=== PATIENT | female | born 1990 | race Caucasian/White ===

== ENCOUNTER 2016-08-23 10:33 | Emergency (ER) | payer MEDICAID, OTHER ==
[2016-08-23 10:46] VITALS: BP 124/74
[2016-08-23] MEDS ORDERED: Acetaminophen/HYDROcodone 325-5 MG Tab PO ONE (11:04)
--- NOTE | 2016-08-23 11:05 | EDM.PDOC ---
ED HPI LOWER BACK PAIN/INJURY - General Chief Complaint: Back Pain or Injury Stated Complaint: Fall down stairs, back pain Time Seen by Provider: 08/23/16 11:00 Source of Information: Reports: Patient, RN notes reviewed History Limitations: Reports: No limitations - History of Present Illness INITIAL COMMENTS - FREE TEXT/NARRATIVE: 26 year old female presents to the ED with complaints of upper and lower back pain from a fall down 5-6 stairs 3 days ago. She has pain to her midline upper back, right shoulder blade, and lumbar spine. She reports mild neck stiffness. She has no difficulty walking. No numbness, tingling, or weakness in her extremities. She denies LOC with the fall. She reports falling backwards down the stairs. No headache, vision changes. She has been taking Tylenol and Ibuprofen with little relief in pain. No additional injury. - Related Data Allergies/ADRs: Allergies Allergy/AdvReac Type Severity Reaction Status Date / Time No Known Allergies Allergy Verified 08/23/16 10:46 Home Meds: Home Meds Acetaminophen/HYDROcodone [[place] 325-5 MG] 1 tab PO Q6H PRN #10 tablet 08/23/16 [Rx] Orphenadrine [Norflex] 100 mg PO BID PRN #15 tab.er 08/23/16 [Rx] Past Medical History - Past Health History Medical/Surgical History: Denies Medical/Surgical History Social & Family History - Tobacco Use Smoking Status *Q: Current Every Day Smoker Years of Tobacco use: 2 Packs/Tins Daily: 0.3 - Caffeine Use Caffeine Use: Reports: None - Recreational Drug Use Recreational Drug Use: No ED ROS GENERAL - Review of Systems Review Of Systems: See Below HEENT: Reports: No symptoms. Denies: Vertigo, Vision change Respiratory: Reports: No Symptoms. Denies: Shortness of Breath Cardiovascular: Reports: No symptoms. Denies: Chest pain GI/Abdominal: Reports: No symptoms. Denies: Abdominal pain, Nausea, Vomiting Musculoskeletal: Reports: back pain, muscle pain Neurological: Reports: No Symptoms. Denies: Numbness, Tingling, Difficulty Walking, Weakness ED EXAM,LOWER BACK PAIN/INJURY - Physical Exam Exam: See Below Exam Limited By: No limitations General Appearance: alert, WD/WN, no apparent distress Neck: normal inspection, supple, non-tender, full range of motion. No: tender midline Respiratory/Chest: no respiratory distress, lungs clear, normal breath sounds, no accessory muscle use, chest non-tender (no rib tenderness on palpation) Cardiovascular: regular rate, rhythm, no murmur Back Exam: normal inspection, full range of motion, paraspinal tenderness, vertebral tenderness (mid thoracic and upper lumbar spine ), other (tenderness over the thoracic and lumbar spine. no step offs. no echymosis. no bruising.) Extremities: normal inspection, normal range of motion Neurological: alert, normal gait, no motor/sensory deficits Skin Exam: Warm, Dry, Intact Course - Vital Signs Last Recorded V/S: Last Vital Signs Temp 97.5 F 08/23/16 10:43 Pulse 76 08/23/16 10:43 Resp 16 08/23/16 10:43 BP 124/74 08/23/16 10:43 Pulse Ox 97 08/23/16 10:43 - Orders/Labs/Meds Orders: Active Orders 24 hr Category Date Time Status Lumbar Spine 2 or 3V [CR] Stat Exams 08/23/16 11:03 Taken Thoracic Spine 3V [CR] Stat Exams 08/23/16 11:03 Taken Labs: Laboratory Tests 08/23/16 Range/Units 11:25 Urine HCG, Qual Negative (NEGATIVE) Meds: Medications Discontinued Medications Generic Name Dose Route Start Last Admin Trade Name Freq PRN Reason Stop Dose Admin Hydrocodone Bitart/Acetaminophen 1 tab 08/23/16 11:04 08/23/16 11:11 [place] 325-5 Mg PO 08/23/16 11:05 1 tab ONETIME ONE Administration - Re-Assessments/Exams Free Text/Narrative Re-Assessment/Exam: Hcg obtained prior to x-rays and is negative. X-rays of thoracic and lumbar spine are unremarkable. Radiologist interpretation pending. Patient educated on return precautions. Prescriptions provided for Norflex and [place]. Departure - Departure Time of Disposition: 12:18 Disposition: Home, Self-Care 01 Condition: good Clinical Impression: Back pain Qualifiers: Back pain location: back pain in unspecified location Chronicity: acute Back pain laterality: midline Qualified Code(s): M54.9 - Dorsalgia, unspecified Prescriptions: Acetaminophen/HYDROcodone [[place] 325-5 MG] 1 tab PO Q6H PRN #10 tablet PRN Reason: Pain Orphenadrine [Norflex] 100 mg PO BID PRN #15 tab.er PRN Reason: Muscle Spasm Instructions: Back Pain, Adult Referrals: PCP,None [Primary Care Provider] - Forms: ED Department Discharge Additional Instructions: Rest and avoid heavy lifting Walking and gentle stretching will help with pain Ibuprofen 600mg every 8 hours [place] 1 tab every 6 hours as needed for pain not relieved by Ibuprofen No driving for at least 8 hours after taking [place] Orphenadrine (norflex) muscle relaxer every 12 hours as needed for muscle spasm Return to ER with worsening of symptoms, loss of bowel or bladder function, or any additional concerns - My Orders Last 24 Hours: My Active Orders 08/23/16 11:03 Lumbar Spine 2 or 3V [CR] Stat Thoracic Spine 3V [CR] Stat - Assessment/Plan Last 24 Hours: My Active Orders 08/23/16 11:03 Lumbar Spine 2 or 3V [CR] Stat Thoracic Spine 3V [CR] Stat
--- NOTE | 2016-08-23 16:49 | CR ---
Thoracic spine: AP, lateral and swimmer's views were obtained of the cervical thoracic junction. Minimal anterior wedging of T12 is seen. Other vertebral body heights are maintained. Pedicles are intact. No subluxation is seen. Impression: 1. Minimal anterior wedging of T12. Uncertain if this is acute or chronic or developmental. MRI would be needed to differentiate if clinically indicated. 2. Three-view thoracic spine study is otherwise unremarkable. Diagnostic code #3
--- NOTE | 2016-08-23 17:24 | CR ---
Thoracic spine: AP, lateral and cone-down lateral views centered to the lumbosacral junction were obtained. Minimal anterior wedging is noted of T11. This was described as T12 on thoracic spine exam which is incorrect. Other vertebral body heights are maintained. Pedicles as well as transverse and spinous processes are intact. No subluxation or fracture is seen. Impression: 1. Slight anterior wedging of T11 described as T12 on thoracic spine exam. This may be old, acute as well as developmental. MRI as described on thoracic spine would be needed to differentiate if clinically indicated. 2. Other portions of the three-view thoracic spine exam is within normal limits for the patient's age. Diagnostic code #3
== END 2016-08-23 12:38 | disposition home or self-care (01) ==
LOC: JD.ED 10:33
DX: M54.5 Low back pain (principal); M54.6 Pain in thoracic spine; F17.210 Nicotine dependence, cigarettes, uncomplicated
CPT/HCPCS: 72072; 72100; 81025; 99284; A9270; 99283

== ENCOUNTER 2016-08-27 15:21 | Emergency (ER) | payer MEDICAID, OTHER ==
[2016-08-27 15:34] VITALS: BP 113/53
[2016-08-27] MEDS ORDERED: Acetaminophen/oxyCODONE 325-5 MG Tab PO ONE (15:54)
--- NOTE | 2016-08-27 16:02 | EDM.PDOC ---
ED HPI LOWER BACK PAIN/INJURY - General Chief Complaint: Back Pain or Injury Stated Complaint: Back pain Time Seen by Provider: 08/27/16 15:45 Source of Information: Reports: Patient, RN notes reviewed History Limitations: Reports: No limitations - History of Present Illness INITIAL COMMENTS - FREE TEXT/NARRATIVE: 26 year old female presents to the ED with upper and lower back pain after falling down approximately 5-6 stairs approximately 1 week ago. Her pain is mostly to her upper-low back and right shoulder blade. She was seen in the ED on 08/23/16 for the same complaints and had x-rays at that time. She denies numbness, tingling, difficulty walking, weakness in extremities, loss of bowel or bladder function. She was prescribed norflex and [place]. She is now out of the [place]. She was taking 1 every 6 hours and said it only partially relieved the pain. The Norflex offered no improvement in pain. - Related Data Allergies/ADRs: Allergies Allergy/AdvReac Type Severity Reaction Status Date / Time No Known Allergies Allergy Verified 08/27/16 15:34 Home Meds: Home Meds Acetaminophen/HYDROcodone [[place] 325-5 MG] 1 tab PO Q6H PRN #10 tablet 08/23/16 [Rx] Orphenadrine [Norflex] 100 mg PO BID PRN #15 tab.er 08/23/16 [Rx] Naproxen 500 mg PO BID #30 tablet 08/27/16 [Rx] oxyCODONE HCl/Acetaminophen [Oxycodone-Acetaminophen 5-325] 1 - 2 each PO Q6H PRN #20 tablet 08/27/16 [Rx] Past Medical History - Past Health History Medical/Surgical History: Denies Medical/Surgical History Social & Family History - Tobacco Use Smoking Status *Q: Current Every Day Smoker Years of Tobacco use: 4 Packs/Tins Daily: 0.1 - Caffeine Use Caffeine Use: Reports: Coffee, Soda - Recreational Drug Use Recreational Drug Use: No ED ROS GENERAL - Review of Systems Review Of Systems: See Below Constitutional: Reports: no symptoms. Denies: fever, chills Respiratory: Reports: No Symptoms. Denies: Shortness of Breath Cardiovascular: Reports: No symptoms. Denies: Chest pain GI/Abdominal: Reports: No symptoms. Denies: Abdominal pain, Nausea, Vomiting Musculoskeletal: Reports: back pain Skin: Reports: no symptoms Neurological: Reports: No Symptoms. Denies: Numbness, Tingling, Difficulty Walking, Weakness ED EXAM,LOWER BACK PAIN/INJURY - Physical Exam Exam: See Below Exam Limited By: No limitations General Appearance: alert, WD/WN, no apparent distress Respiratory/Chest: no respiratory distress, lungs clear, normal breath sounds Cardiovascular: regular rate, rhythm Back Exam: normal inspection, full range of motion, paraspinal tenderness (low back ), vertebral tenderness (lower thoracic and upper lumbar spine. ), other ( No step offs or deformities noted over the spine. tenderness over right shoulder blade. No deformity, swelling or crepitus. ). No: muscle spasm Extremities: normal inspection, normal range of motion Neurological: alert, normal mood/affect, normal dorsiflexion, normal plantar flexion, normal gait, no motor/sensory deficits, oriented x 3 Course - Vital Signs Last Recorded V/S: Last Vital Signs Temp 97.6 F 08/27/16 15:30 Pulse 63 08/27/16 15:30 Resp 16 08/27/16 15:30 BP 113/53 L 08/27/16 15:30 Pulse Ox 100 08/27/16 15:30 - Orders/Labs/Meds Orders: Active Orders 24 hr Category Date Time Status Thoracic Spine wo Cont [CT] Stat Exams 08/27/16 15:55 Taken Meds: Medications Discontinued Medications Generic Name Dose Route Start Last Admin Trade Name Freq PRN Reason Stop Dose Admin Oxycodone/Acetaminophen 2 tab 08/27/16 15:54 08/27/16 16:00 Percocet 325-5 Mg PO 08/27/16 15:55 2 tab ONETIME ONE Administration - Re-Assessments/Exams Free Text/Narrative Re-Assessment/Exam: Reviewed radiologist reports of thoracic and lumbar xrays from 08/23/16. Dr. Kay notes possible anterior wedging of T11 or T12. Will obtain CTs of thoracic and lumbar spine today. Hcg was obtained and negative on 08/23/16. 08/27/16 17:27 CTs of lumbar and thoracic spine read by Dr. Kay. No acute findings or fractures. CT reviewed by Dr. Berg and myself who agree with radiologist interpretation. Please see full reports Pain is well controlled after two Percocet. Will prescribe Percocet and Naproxyn. Will refer to PT and have her call to establish care in our clinic. Educated on return precautions. Discharge instructions as documented. Departure - Departure Time of Disposition: 17:21 Disposition: Home, Self-Care 01 Condition: good Clinical Impression: Back pain Qualifiers: Back pain location: thoracic back pain Chronicity: acute Back pain laterality: midline Qualified Code(s): M54.6 - Pain in thoracic spine Prescriptions: Naproxen 500 mg PO BID #30 tablet oxyCODONE HCl/Acetaminophen [Oxycodone-Acetaminophen 5-325] 1 - 2 each PO Q6H PRN #20 tablet PRN Reason: Pain Referrals: PCP,None [Primary Care Provider] - Forms: ED Department Discharge Additional Instructions: Naproxyn 500mg twice a day with food Percocet 1-2 tabs every 6 hours as needed for pain not releived by Naproxyn Return to ER as needed Follow-up in our health clinic next week to establish care with a primary care provider. Call [phone] to schedule an appointment Our physical therapy department will call you to schedule your first appointment - My Orders Last 24 Hours: My Active Orders 08/27/16 15:55 Thoracic Spine wo Cont [CT] Stat - Assessment/Plan Last 24 Hours: My Active Orders 08/27/16 15:55 Thoracic Spine wo Cont [CT] Stat
--- NOTE | 2016-08-27 17:09 | CT ---
CT lumbar spine Technique: Multiple axial sections were obtained through the lumbar spine. Reconstructed sagittal and coronal images were reviewed. Findings: Vertebral body heights and disc spaces are maintained. Vertebral bodies and posterior arches are intact. No fracture is seen. No abnormal subluxation is seen. No disc herniation is seen. No central canal stenosis or neural foraminal stenosis is seen. No abnormal subluxation is seen on the reconstructed sagittal images. Bony density is seen off the tip of the L2 spinous process compatible with old fracture. Impression: 1. Old fracture off the tip of the spinous process of L2. This is incidental. 2. Nothing acute is identified on CT study of the lumbar spine. Diagnostic code #2
--- NOTE | 2016-08-28 10:53 | CT ---
CT thoracic spine Technique: Multiple axial sections were obtained through the thoracic spine. Reconstructed sagittal and coronal images were reviewed. Findings: Vertebral bodies and posterior arches are intact. No fracture is seen. No bony central or bony neural foraminal stenosis is identified. Visualized lungs are clear. No discrete disc herniation is identified. Small sclerotic area noted within the inferior T11 vertebral body is felt to be incidental. Disc space narrowing is noted at T11-12 which is felt to be developmental. Minimal anterior wedging is noted of T11 which is felt to be developmental. Minimal endplate wedging of the superior T12 vertebral body which is also felt to be developmental. Other vertebral body heights are maintained. No abnormal subluxation is seen. Small calcified lymph node compatible with granulomatous exposure is seen within the left hilar region as an incidental note. Impression: 1. Incidental findings at T11 and T12. 2. Small calcified lymph node within left hilar region which is incidental. 3. Nothing acute is identified on CT study of the thoracic spine. Diagnostic code #2
== END 2016-08-27 17:32 | disposition home or self-care (01) ==
LOC: JD.ED 15:21
DX: M54.6 Pain in thoracic spine (principal); F17.210 Nicotine dependence, cigarettes, uncomplicated
CPT/HCPCS: 72128; 72131; 99284; A9270; 99283

== ENCOUNTER 2016-09-07 17:50 | Emergency (ER) | payer MEDICAID ==
[2016-09-07 18:01] VITALS: BP 116/85
[2016-09-07] MEDS ORDERED: Ketorolac 60 MG/2 ML SDV IM ONE (18:40)
--- NOTE | 2016-09-07 19:20 | EDM.PDOC ---
ED HPI GENERAL MEDICAL PROBLEM - General Chief Complaint: Back Pain or Injury Stated Complaint: BACK PAIN Time Seen by Provider: 09/07/16 18:16 Source of Information: Reports: Patient, Old Records (recent ER and clinic visits ) History Limitations: Reports: No Limitations - History of Present Illness INITIAL COMMENTS - FREE TEXT/NARRATIVE: 26-year-old female comes in for evaluation and treatment of low back pain. Patient was seen in ER on 08-23 and 08-27 for this. Original injury occurred on . She states that she fell down some stairs backwards and landed straight on her back. Previous ER visits included x-rays and CT scans. No acute abnormalities were identified. She also followed up with a primary care provider. Referred her to physical therapy and instructed to use hospice care sales consultant. She has not seen the chiropractor. She has gone to one physical therapy visit. Current symptoms include low back pain. She also reports "chills". Denies any fevers, malaise, nausea, vomiting, urinary incontinence, stool incontinence, numbness, tingling or saddle anesthesia. No bruising currently but states that she was bruised earlier. 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 Has not found any relief with the muscle ralxers or any of these other medications but found some relief with the Percocet and [place]. Location: Reports: Back Improves with: Reports: Medication (norcotics) Context: Reports: Trauma (fall) Associated Symptoms: Reports: No Other Symptoms Right Lower Back Pain Score (Numeric/FACES): 8 - Related Data Allergies Allergy/AdvReac Type Severity Reaction Status Date / Time No Known Allergies Allergy Verified 09/07/16 18:00 Home Meds: Home Meds Naproxen 500 mg PO BID #30 tablet 08/27/16 [Rx] Prednisone [IJD: predniSONE] 40 mg PO WITHBREAKFAST #10 tab 09/07/16 [Rx] traMADol [Ultram] 50 mg PO Q8H PRN #12 tablet 09/07/16 [Rx] Acetaminophen/oxyCODONE [Percocet 325-5 MG] 1 tab PO Q6H PRN #15 tablet [Rx] Past Medical History - Past Health History Medical/Surgical History: Denies Medical/Surgical History Social & Family History - Tobacco Use Smoking Status *Q: Current Every Day Smoker Years of Tobacco use: 4 Packs/Tins Daily: 0.1 - Caffeine Use Caffeine Use: Reports: Coffee - Recreational Drug Use Recreational Drug Use: No ED ROS GENERAL - Review of Systems Review Of Systems: See Below Constitutional: Reports: Chills. Denies: Fever, Malaise GI/Abdominal: Denies: Nausea, Stool Incontinence, Vomiting : Reports: No Symptoms. Denies: Dysuria, Flank Pain, Hematuria, Incontinence Musculoskeletal: Reports: Back Pain (lower back pain) Skin: Denies: Bruising Neurological: Reports: Other (no saddle anesthesia). Denies: Numbness, Tingling ED EXAM,LOWER BACK PAIN/INJURY - Physical Exam Exam: See Below Exam Limited By: No Limitations General Appearance: Alert, WD/WN, No Apparent Distress Throat/Mouth: Normal Inspection Neck: Normal Inspection, Supple, Non-Tender, Full Range of Motion Respiratory/Chest: No Respiratory Distress, Lungs Clear, Normal Breath Sounds Cardiovascular: Normal Peripheral Pulses, Regular Rate, Rhythm, No Murmur GI/Abdominal: Soft, Non-Tender Back Exam: Normal Inspection, Paraspinal Tenderness (SI joint, bilateral). No: Muscle Spasm, Vertebral Tenderness Extremities: Normal Inspection, Normal Range of Motion, Other (Strength testing : 5 out of 5 bilaterally for hip abduction, hip adduction, hip flexion, lower leg flexion, lower leg extension, dorsi flexion and plantar flexion.) Neurological: Alert, Normal Mood/Affect, Normal Dorsiflexion, Normal Plantar Flexion, Normal Gait, Normal Reflexes (2+ patallar and achilles), Oriented x 3. No: Straight Leg Raise (L), Straight Leg Raise (R), Saddle Anesthesia, Difficulty Walking DTR - Lower Extremities: 2+: Knee (R), Knee (L), Ankle (R), Ankle (L) Psychiatric: Normal Affect, Normal Mood Skin Exam: Warm, Dry, Normal Color. No: Ecchymosis Course - Vital Signs Last Recorded V/S: Last Vital Signs Temp 36.6 C 09/07/16 17:56 Pulse 90 09/07/16 17:56 Resp 16 09/07/16 17:56 BP 116/85 09/07/16 17:56 Pulse Ox 100 09/07/16 17:56 - Orders/Labs/Meds Meds: Medications Discontinued Medications Generic Name Dose Route Start Last Admin Trade Name Whitney PRN Reason Stop Dose Admin Ketorolac Tromethamine 60 mg 09/07/16 18:40 09/07/16 18:57 Toradol IM 09/07/16 18:41 60 mg ONETIME ONE Administration - Re-Assessments/Exams Free Text/Narrative Re-Assessment/Exam: 09/07/16 19:10 I reviewed the images and recent ER and clinic visits. No acute abnormalities identified on the CTs and x-rays. Initially reported pain along her entire back including her thoracic spine. Now only complaining of pain in the lumbar spine. Patient searched on [place] [employer] 3 prescriptions for controlled substances since 08-23-16. 2 from the ER and one from her primary care provider for narcotics since 08-23-16. I feel that she is likely displayingdrug-seeking behavior. Her physical exam was unremarkable. She continues to complain of pain. I will write her for some tramadol and try her on some prednisone. She requests an MRI. Will schedule this outpatient and she can follow up with her primary care provider or results. Discharge instructions as documented. Departure - Departure Time of Disposition: 19:17 Disposition: Home, Self-Care 01 Condition: fair Clinical Impression: Back pain - Discharge Information Prescriptions: Prednisone [IJD: predniSONE] 40 mg PO WITHBREAKFAST #10 tab traMADol [Ultram] 50 mg PO Q8H PRN #12 tablet PRN Reason: Pain Instructions: Back Pain, Adult, [id number] Referrals: Jody Menendez PA [Primary Care Provider] - Forms: ED Department Discharge Additional Instructions: Take the prednisone 2 tablets or 40 mg daily. This is for inflammation of also help with the pain. Take [id number] Tylenol or Motrin. For pain not relieved by Tylenol or Motrin, may take tramadol one tab every 6-[address] or operating machinery within 12 hours of taking the tramadol. Follow up with your primary care provider in one week for MRI results.. MRI ordered as an outpatient. Please call [phone] to schedule the MRI tomorrow. Please return to the ER should your symptoms change or worsen.
== END 2016-09-07 19:46 | disposition home or self-care (01) ==
LOC: JD.ED 17:50
DX: M54.5 Low back pain (principal); F17.210 Nicotine dependence, cigarettes, uncomplicated; Z79.899 Other long term (current) drug therapy
CPT/HCPCS: 96372; 99283; J1885

== ENCOUNTER 2016-09-08 12:41 | Emergency (ER) | payer MEDICAID ==
[2016-09-08 12:49] VITALS: BP 115/78
--- NOTE | 2016-09-08 13:51 | EDM.PDOC ---
ED HPI GENERAL MEDICAL PROBLEM - General Chief Complaint: Back Pain or Injury Stated Complaint: BACK PAIN Time Seen by Provider: 09/08/16 13:24 Source of Information: Reports: Patient History Limitations: Reports: No Limitations - History of Present Illness INITIAL COMMENTS - FREE TEXT/NARRATIVE: 26-year-old female presents for evaluation and treatment of low back pain. Patient was seen by myself yesterday and prescribed tramadol and prednisone for her low back pain. Reports that she was unable to fill Tramadol as her Medicaid would not cover it. No relief with the prednisone. Ordered an outpatient MRI which she has scheduled for September 14. She is here today for pain control. No change in symptoms. States she was up all night due to the pain and only fell asleep after taking a muscle relaxer around 4am. Original injury occurred about 2-3 weeks ago. Patient fell down the steps after missing the top step. She's been seen in the ER on 3 different occasions and seen by her primary care provider once. She has had x-rays and CT which have not shown any acute abnormalities. Has tried muscle relaxers, NSAIDs, Tylenol, norco and Percocet. Has not found any relief with anything other than the norco for Percocet. She was instructed to follow up with physical therapy and medicare contact specialist. She has not seen a chiropractor. She has seen physical therapy on one occasion. Did not feel that it provided much benefit. Right Hip Pain Score (Numeric/FACES): 9 - Related Data Allergies Allergy/AdvReac Type Severity Reaction Status Date / Time No Known Allergies Allergy Verified 09/07/16 18:00 Home Meds: Home Meds Naproxen 500 mg PO BID #30 tablet 08/27/16 [Rx] Prednisone [IJD: predniSONE] 40 mg PO WITHBREAKFAST #10 tab 09/07/16 [Rx] traMADol [Ultram] 50 mg PO Q8H PRN #12 tablet 09/07/16 [Rx] Acetaminophen/oxyCODONE [Percocet 325-5 MG] 1 tab PO Q6H PRN #15 tablet [Rx] Past Medical History - Past Health History Medical/Surgical History: Denies Medical/Surgical History Musculoskeletal History: Reports: Other (See Below) Other Musculoskeletal History: back pain from a fall 2 weeks ago Social & Family History - Tobacco Use Smoking Status *Q: Current Every Day Smoker Years of Tobacco use: 4 Packs/Tins Daily: 0.2 - Caffeine Use Caffeine Use: Reports: Coffee, Soda, Tea - Recreational Drug Use Recreational Drug Use: No ED ROS GENERAL - Review of Systems Review Of Systems: ROS reveals no pertinent complaints other than HPI. ED EXAM,LOWER BACK PAIN/INJURY - Physical Exam Exam: See Below Exam Limited By: No Limitations General Appearance: Alert, WD/WN, No Apparent Distress Respiratory/Chest: No Respiratory Distress Cardiovascular: Normal Peripheral Pulses Back Exam: Normal Inspection Neurological: Alert, Normal Mood/Affect, Normal Gait Psychiatric: Normal Affect, Normal Mood Skin Exam: Warm, Dry, Normal Color Course - Vital Signs Last Recorded V/S: Last Vital Signs Temp 36.4 C 09/08/16 12:48 Pulse 74 09/08/16 12:48 Resp 20 09/08/16 12:48 BP 115/78 09/08/16 12:48 Pulse Ox 97 09/08/16 12:48 - Re-Assessments/Exams Free Text/Narrative Re-Assessment/Exam: 09/08/16 13:43 I spoke with radiology and was able to move of her MRI up to this September 11. I spoke with patient's primary care provider, Jody Menendez. Her story is suspicious for drug-seeking behavior. Isamar states that she would be willing to give her narcotic pain medication until the MRI is done but would not continue to give her pain medication if the MRI is negative. I spoke with the patient. I will provide her with a small prescription for Percocet. She was instructed that this is a chronic medical condition and we do not provide narcotic pain medication in the ER for chronic medical problems. She will not be given additional narcotic pain meds to the ER for this problem. She needs to follow up with her primary care provider. She expresses understanding of this. Discharge instructions as documented. Departure - Departure Time of Disposition: 13:49 Disposition: Home, Self-Care 01 Condition: fair Clinical Impression: Back pain - Discharge Information Prescriptions: Acetaminophen/oxyCODONE [Percocet 325-5 MG] 1 tab PO Q6H PRN #15 tablet PRN Reason: Pain Instructions: Back Pain, Adult Referrals: Jody Menendez PA [Primary Care Provider] - Forms: ED Department Discharge Additional Instructions: Your MRI has been moved up to this September 11 at 10 AM. Please presents to the [facility] side of the clinic around 9:30 for registration. Follow up with your primary care provider for MRI results and further pain management. We are unable to provide any prescriptions for chronic pain management through the ER. Percocet one tablet every 4-6 hours as needed for severe pain. Do not drive or operate machinery within 12 hours of taking the Percocet. Percocet can be habit- forming, I recommend you take as few of these as needed to control your pain. Please return to the ER should your symptoms change or worsen.
== END 2016-09-08 13:57 | disposition home or self-care (01) ==
LOC: JD.ED 12:41
DX: M54.9 Dorsalgia, unspecified (principal); F17.210 Nicotine dependence, cigarettes, uncomplicated
CPT/HCPCS: 99283

== ENCOUNTER 2016-12-06 18:35 | Emergency (ER) | payer MEDICAID | END 2016-12-06 19:00 | disposition left against medical advice (07) | LOC: JD.ED 18:35 | DX: Z53.21 Procedure and treatment not carried out due to patient leaving prior to being seen by health care provider (principal) ==

== ENCOUNTER 2017-01-20 18:28 | Emergency (ER) | payer MEDICAID ==
[2017-01-20 18:40] VITALS: BP 108/64
[2017-01-20] MEDS ORDERED: Ketorolac 60 MG/2 ML SDV IM ONE (19:32)
--- NOTE | 2017-01-20 20:11 | EDM.PDOC ---
ED HPI GENERAL MEDICAL PROBLEM - General Chief Complaint: Back Pain or Injury Stated Complaint: MID BACK PAIN/RIGHT GOES NUMB Time Seen by Provider: 01/20/17 19:08 Source of Information: Reports: Patient History Limitations: Reports: No Limitations - History of Present Illness INITIAL COMMENTS - FREE TEXT/NARRATIVE: 26-year-old female presents for evaluation and treatment of back pain and right arm numbness and tingling. Patient reports that she has been having mid to lower back pain on and off for "a while ". Upon further discussion this stemmed from a injury in late July. She was seen in the ER in July numerous times for this. She's had x-rays and CTs of her back done which did not show any abnormalities. An MRI of her back was ordered, however, she reports that due to family emergency she was not able to go to the MRI. Reports the original injury was she fell down some steps backwards. She has tried physical therapy. Reports that she's been experiencing worsening back pain since Wednesday. She saw her primary care provider on Wednesday. She was prescribed some muscle relaxers, Percocet for pain and an anti-inflammatory. She reports numbness and tingling to the right arm that started today. Reports that it comes and goes. She denies any currently now. She states that she called her primary care provider at 1600 and was instructed to come to the ER. She states that she is now out of the oxycodone and she is requesting more today. Middle Back Pain Score (Numeric/FACES): 9 - Related Data Allergies Allergy/AdvReac Type Severity Reaction Status Date / Time ketorolac [From Toradol] Allergy Other Verified 01/20/17 20:00 Home Meds: Home Meds Naproxen 500 mg PO BID #30 tablet 08/27/16 [Rx] Past Medical History - Past Health History Medical/Surgical History: Denies Medical/Surgical History Musculoskeletal History: Reports: Other (See Below) Other Musculoskeletal History: back pain from a fall 2 weeks ago Social & Family History - Tobacco Use Smoking Status *Q: Light Tobacco Smoker Years of Tobacco use: 3 Packs/Tins Daily: 0.1 - Caffeine Use Caffeine Use: Reports: Coffee - Recreational Drug Use Recreational Drug Use: No ED ROS GENERAL - Review of Systems Review Of Systems: See Below Constitutional: Denies: Fever GI/Abdominal: Denies: Nausea, Stool Incontinence, Vomiting : Denies: Incontinence Musculoskeletal: Reports: Back Pain (mid to low back pain) Neurological: Reports: Numbness (right arm, intermittent), Tingling (right arm, intermittent) ED EXAM,LOWER BACK PAIN/INJURY - Physical Exam Exam: See Below Exam Limited By: No Limitations General Appearance: Alert, WD/WN, No Apparent Distress Ears: Normal External Exam Nose: Normal Inspection Throat/Mouth: Normal Inspection, Normal Voice, No Airway Compromise Respiratory/Chest: No Respiratory Distress, Lungs Clear, Normal Breath Sounds Cardiovascular: Normal Peripheral Pulses, Regular Rate, Rhythm, No Murmur Back Exam: Normal Inspection. No: CVA Tenderness (L), CVA Tenderness (R), Paraspinal Tenderness, Vertebral Tenderness Extremities: Normal Inspection, Normal Capillary Refill, Other (strength testing : shoulder flexion 4.5/5 right and 5/5 left; forearm flexion 4.5/5 right and 5/ 5 left; forearm extension 5/5 bilaterally; wrist flexion 4.5/5 right and 5/5 left; wrist extension 5/5 bilaterally; inspection supervisor 5/5 bilaterally; questioable effort ; reports sensation to light touch of the right arm) Neurological: Alert, Normal Mood/Affect, Normal Dorsiflexion, Normal Plantar Flexion, Normal Gait Psychiatric: Normal Affect, Normal Mood Skin Exam: Warm, Dry, Normal Color Course - Vital Signs Last Recorded V/S: Last Vital Signs Temp 36.6 C 01/20/17 18:34 Pulse 81 01/20/17 18:34 Resp 16 01/20/17 18:34 BP 108/64 01/20/17 18:40 Pulse Ox 98 01/20/17 18:34 - Orders/Labs/Meds Meds: Medications Discontinued Medications Generic Name Dose Route Start Last Admin Trade Name Freq PRN Reason Stop Dose Admin Ketorolac Tromethamine 60 mg 01/20/17 19:32 01/20/17 19:42 Toradol IM 01/20/17 19:33 Not Given ONETIME ONE - Re-Assessments/Exams Free Text/Narrative Re-Assessment/Exam: 01/20/17 20:04 I reviewed the patient's recent ER visits from July and August as well as her recent clinic visit with her primary care provider Jody Menendez. Records that she was given the Nabumentone, flexril and 10 Percocet. She reports to me that she received 5 Percocet. Patient was searched on the narcotic prescription drug registry. She has received 5 prescriptions in the last year. Most recently Percocet 5-325#10 on 01-18-17. This was mostly a 3 day supply. The patient identifies back pain around the T5-T6 area. This is inconsistent with numbness and tingling to the right arm. She denies any neck pain. I do not feel that the numbness and tingling to her right arm is stemming from her right back. Her exam was inconsistent. I feel she might be drug seeking. I informed the patient that this is a chronic problem and we do not refill narcotic pain medication for chronic pain. She will have to talk with her primary care provider for further refills. I can offer her an outpatient MRI or physical therapy. Patient refused the Toradol reports that she has "an allergy ". States that she keeps her up all night. We will discharge her home. Discharge instructions as documented. Departure - Departure Time of Disposition: 20:09 Disposition: Home, Self-Care 01 Condition: Fair Clinical Impression: Back pain - Discharge Information Instructions: Thoracic Strain, [id number] Referrals: Jody Menendez PA [Primary Care Provider] - Forms: ED Department Discharge Additional Instructions: Continue with your current plan of care. Unfortunately we are unable to refill narcotic medications in the ER for chronic back problems. I recommend you contact your primary care provider if you need further medication refills. Recommend using ice or moist heat to the soreness in your back. Please return to ER if your symptoms change or worsen.
== END 2017-01-20 20:15 | disposition home or self-care (01) ==
LOC: JD.ED 18:28
DX: M54.5 Low back pain (principal); M54.6 Pain in thoracic spine; F17.210 Nicotine dependence, cigarettes, uncomplicated; Z88.6 Allergy status to analgesic agent
CPT/HCPCS: 99283

== ENCOUNTER 2017-08-10 11:32 | Emergency (ER) | payer MEDICAID ==
--- NOTE | 2017-08-10 12:25 | EDM.PDOC ---
ED HPI GENERAL MEDICAL PROBLEM - General Chief Complaint: ENT Problem Stated Complaint: TOOTH PAIN Time Seen by Provider: 08/10/17 12:09 Source of Information: Reports: Patient History Limitations: Reports: No Limitations - History of Present Illness INITIAL COMMENTS - FREE TEXT/NARRATIVE: 27-year-old female presents for evaluation and treatment of tooth pain. States that her left lower molar is causing her significant pain. States 3 weeks ago she broke the tooth in front of it. Now on Wednesday she developed significant pain. She states she has not been to a dentist in several years. She did try contacting dentist but cannot be seen right away. Has been taking over-the- counter Tylenol and Motrin without any relief. She reports pain to the tooth. She also feels that her face is slightly swollen. She denies any fevers, chills , nausea, vomiting, ear pain, sinus pain, headaches or any bad taste in her mouth. Left Tooth/Teeth Pain Score (Numeric/FACES): 7 - Related Data Allergies Allergy/AdvReac Type Severity Reaction Status Date / Time ketorolac [From Toradol] Allergy Other Verified 08/10/17 11:36 Home Meds: Home Meds Amoxicillin/Clavulanate K [Augmentin 500-125 MG] 1 tab PO BID #20 tab 08/10/17 [ Rx] Naproxen 500 mg PO Q12HR PRN #20 tablet 08/10/17 [Rx] Past Medical History - Past Health History Medical/Surgical History: Denies Medical/Surgical History Musculoskeletal History: Reports: Other (See Below) Other Musculoskeletal History: back pain from a fall 2 weeks ago Social & Family History - Tobacco Use Smoking Status *Q: Current Every Day Smoker Years of Tobacco use: 7 Packs/Tins Daily: 0.3 Used Tobacco, but Quit: No Second Hand Smoke Exposure: No - Caffeine Use Caffeine Use: Reports: Coffee - Recreational Drug Use Recreational Drug Use: No ED ROS ENT - Review of Systems Review Of Systems: See Below Constitutional: Denies: Fever, Chills HEENT: Reports: Dental Pain (left lower molars), Other (reports facial swelling) . Denies: Ear Pain, Sinus Problem GI/Abdominal: Denies: Nausea, Vomiting Neurological: Denies: Headache ED EXAM, ENT - Physical Exam Exam: See Below Exam Limited By: No Limitations General Appearance: Alert, WD/WN, No Apparent Distress Eye Exam: Bilateral Eye: Normal Inspection Ears: Normal External Exam, Normal Canal, Hearing Grossly Normal, Normal TMs Nose: Normal Inspection Mouth/Throat: Normal Inspection, Normal Gums, Dental Tenderness (#17 and #18), Dental Trauma (#18 is broken), Other (gum regression and inflammation; multiple carries present). No: Dental Abcess Respiratory/Chest: No Respiratory Distress, Lungs Clear, Normal Breath Sounds Cardiovascular: Normal Peripheral Pulses, Regular Rate, Rhythm, No Murmur Neurological: Alert, Oriented, Normal Cognition Psychiatric: Normal Affect, Normal Mood Skin: Warm, Dry, Normal Color Course - Vital Signs Last Recorded V/S: Last Vital Signs Temp 36.1 C 08/10/17 11:37 Pulse 72 08/10/17 12:35 Resp 16 08/10/17 12:35 BP 104/63 08/10/17 12:35 Pulse Ox 97 08/10/17 12:35 Departure - Departure Time of Disposition: 12:19 Disposition: Home, Self-Care 01 Condition: Fair Clinical Impression: Fracture of tooth, Gingivitis - Discharge Information Prescriptions: Naproxen 500 mg PO Q12HR PRN #20 tablet PRN Reason: Pain Amoxicillin/Clavulanate K [Augmentin 500-125 MG] 1 tab PO BID #20 tab Instructions: Gingivitis, [id number], Tooth Injuries, [id number] Referrals: Jody Menendez PA [Primary Care Provider] - Forms: ED Department Discharge Additional Instructions: Take the Augmentin as prescribed. 1 tab twice a day for 10 days. Take this with food. This medication can cause upset stomach, nausea and diarrhea. Recommend a probiotic or yogurt to help reduce the symptoms. Naproxen 1 tab twice a day as needed for pain. May take [id number] Tylenol as needed for additional pain relief. do not take more than 4 g of Tylenol from all sources in 1 day. In addition recommend [id number] Orajel or clove oil for additional pain relief. See a dentist as soon as you able to. Follow-up with primary care provider as needed. Please return to the ER if your symptoms change or worsen.
[2017-08-10 12:40] VITALS: BP 104/63
== END 2017-08-10 12:35 | disposition home or self-care (01) ==
LOC: JD.ED 11:32
DX: K05.10 Chronic gingivitis, plaque induced (principal); K03.81 Cracked tooth; F17.210 Nicotine dependence, cigarettes, uncomplicated; Z88.6 Allergy status to analgesic agent
CPT/HCPCS: 99283